=== PATIENT | male | born 1940 ===

== ENCOUNTER 2016-11-06 07:34 | Day surgery (SDC) | payer MEDICARE, OTHER ==
[2016-11-06 08:25] VITALS: BMI 21.7
[2016-11-06] MEDS ORDERED: Lactated Ringer's 1,000 ML IV ONE (09:08)
[2016-11-06] MEDS ORDERED: Propofol 10 mg/ml Inj (20 ML) ONE (09:26)
[2016-11-06] MEDS ORDERED: Rocuronium 10 mg/ml (5 ml) ONE (09:26)
[2016-11-06] MEDS ORDERED: Succinylcholine 200 mg/10 ml Inj IV ONE (09:26)
[2016-11-06] MEDS ORDERED: Midazolam 2 MG/2 ML VIAL ONE (09:26)
[2016-11-06] MEDS ORDERED: Chlorhexidine Gluconate 2OZ GEL TP ONE (10:11)
[2016-11-06] MEDS ORDERED: cefTRIAXone (Rocephin) 1 gm Inj ONE (10:11)
[2016-11-06] MEDS ORDERED: Etomidate 20 mg/10ml Inj IV ONE (10:21)
[2016-11-06] MEDS ORDERED: cefTRIAXone (Rocephin) 1 gm Inj IVPB ONE (10:40)
--- NOTE | 2016-11-06 12:43 | OP ---
PROCEDURE DATE: 11/06/2016 PREOPERATIVE DIAGNOSIS: Large bladder tumor. POSTOPERATIVE DIAGNOSIS: Large bladder tumor. PROCEDURE PERFORMED: Transurethral resection of large bladder tumor. The patient was placed on the operating table in dorsal lithotomy position, given general anesthesia. The area of the groin was draped and prepped in a sterile manner. At this time, I used a #24 cysto scope and under direct vision entered into the bladder. Immediately to the left of the left ureteral orifice in the lateral wall, there were 2 rather large lesions of bladder tumor. I looked at the opposite side, in the dome and the floor. There were no other lesions. At this time, I rese cted those 2 lesions completely. There was some bleeding noted during the resection, but was able to gain complete control after the tumor was removed and the base was cauterized. Once this was done, fragments were aspirated with a Juan Carlos syringe and then final look to see that there was no residual bleeding. Then, the resectoscope was removed. A #22 three-way Bautista catheter was inserted. The ini tial outflow was clear. I estimated the blood loss to be about 10 mL. The patient was then taken fr om the operating room in good condition. Kaylan Dent MD cc: [id number] TT: 11/06/2016 12:42:41 en
[2016-11-06 13:06] VITALS: RESP 18
[2016-11-06 15:15] VITALS: BP 142/69; PULSE 60; TEMP 98.1; O2SAT 98
--- NOTE | 2016-11-06 18:46 | DS ---
The patient was admitted today for elective transurethral resection of bladder tumor in recovery. He has a Bautista catheter with the initial CBI that is running clear. The patient will go home with a Fo nora to leg bag, and also a prescription for Cipro and Ultracet was given at time of discharge. I faisal l follow up the patient in my office on Sunday for removal of Bautista catheter. Kaylan Dent MD cc: [id number] TT: 11/06/2016 18:45:27 mn
== END 2016-11-06 15:27 | disposition home or self-care (01) ==
LOC: H.OPSURG 07:34
PROVIDERS: ATTEND Urology
DX: R31.9 Hematuria, unspecified (principal); E11.9 Type 2 diabetes mellitus without complications; E78.5 Hyperlipidemia, unspecified
CPT/HCPCS: 52240; 82948; 88104; 88108; 88305; 88307; J0330; J0696; J2001; J2250; J2405; J2704; J3010; J7120